=== PATIENT | female | born 1935 | race Caucasian/White ===

== ENCOUNTER 2016-11-02 15:23 | Inpatient (IN) ==
[2016-11-02] MEDS ORDERED: KETOROLAC 30 MG/1 ML VIAL IV STA (16:15)
[2016-11-02] MEDS ORDERED: SODIUM CHLORIDE 0.9% 500 ML IV STA (16:15)
--- NOTE | 2016-11-02 16:17 | Emergency Department Note ---
Silvano Borden Manpreet, am scribing for, and in the presence of, Tabby Herbert DO 16: 13. IKeon Debra, DO, personally performed the services described in this documentation, ascribed by Prieto Schaefer in my presence, and it is both accurate and complete 617 . Arrival - Arrival Chief Complaint: Non-Specific Stated Complaint: ?Hypotension from [facility] ED Nursing Triage Note: Pt sent from [facility] for low blood pressure since this am (systolic pressure 60-80's). Upon EMS arrival BP systolic of 115. Pt c/o left leg pain and had a Left Hip FX repair on 10-26. Mode of Arrival: Stretcher Limitations: No Limitations Source: Patient, Family (Son) - History of Present Illness HPI Narrative: Pt is a 81 y/o male who is transferred from [facility] for further evaluation of hypotention since yesterday. Pt is at [facility] for rehab which she started 10/29/16 S/P fracturing hip on 10/25/16 and having surgery on . Pt is accompanied by her son who states the pt did not eat food yesterday but at some today. Pt c/o a FLORES that is a new onset while being in the room. Pt' s BP was 118/47 during triage. No other pains/complaints reported to the ED. Onset (ago): day(s) (Yesterday) Consistency: constant Severity: moderate Allergies/Adverse Reactions: Allergies Allergy/AdvReac Type Severity Reaction Status Date / Time No Known Allergies Allergy Verified 10/29/16 15:31 Home Medications: Home Medications Medication Instructions Recorded Confirmed Type Atorvastatin [Lipitor] 40 mg PO DAILY #30 tablet 01/29/16 10/29/16 Rx Carvedilol [Coreg] 3.125 mg PO BID #60 tablet 01/29/16 10/29/16 Rx Isosorbide Mononitrate [Imdur] 30 mg PO DAILY #30 tablet 01/29/16 10/29/16 Rx Ticagrelor [Brilinta] 90 mg PO BID #60 tablet 01/29/16 10/29/16 Rx hydrALAZINE TAB [Apresoline Tab] 25 mg PO BID #60 tablet 01/29/16 10/29/16 Rx Insulin NPH [HumuLIN N] 10 unit SUBCUT BEDTIME 10/25/16 10/29/16 History Insulin Regular [HumuLIN R] 5 unit SUBCUT AC 10/25/16 10/29/16 History Review of System - Review of System 12 point system: reviewed and no additional remarkable complaints except as stated - Review of System Constitutional: Present: other (Hypotention). Absent: chills, diaphoresis, fever Respiratory: Absent: cough, respiratory distress, wheezing Cardiovascular: Absent: chest pain Gastrointestinal: Absent: abdominal pain, nausea, vomiting Neurological: Present: headache. Absent: weakness, numbness, paresthesias Medical,Surgical,& Family Hx - Medical History Cardio: History of: CHF (Jan 2016), CAD (Cardiac stents placed in January, ) Neurology: History of: Vertigo HEENT: History of: Eye Problem (macular degeneration) Endocrine: History of: Diabetes Mellitus (IDDM), Dyslipidemia Rheumatology: History of;: Rheumatoid Arthritis Respiratory: History of: Bronchitis Renal: History of: Renal Problems Genitourinary: History of: Recurring Urinary Tract Infections Musculoskeletal: History of: Back/Neck Problems (back surgery), Musculoskeletal Problems Other: History of: Miscellaneous Medical Problems (staph infection origin and date unknown) - Surgical History Cardiac Surgeries: Sugical HX of: Cardiac Catheterization (January 2016-Dr. Valentine) Neurologic Surgeries: Patient denies: Neurologic Surgery HEENT Surgeries: Surgical HX of: Eye Surgery (cataract left and right) Abdominal Surgeries: Surgical HX of: Appendectomy Reproductive Surgeries: Surgical HX of;: Section, Hysterectomy Orthopedic Surgeries: Surgical HX of;: Orthopedic Surgery (left femur fx ORIF ( current diag 10/2016)), Spinal Surgery - Family History Family History: Reports;: Family Cancer (Mothers sister), Family Diabetes ( Oldest daughter, Patients mother and father), Family Heart Disease (mother) Denies;: Family Anesthesia Reaction - Social History Smoking Status: Never smoker Exam Vital Signs: Vital Signs Temperature 97.9 F 11/02/16 15:42 Pulse Rate 69 11/02/16 17:07 Respiratory Rate 23 11/02/16 17:07 Blood Pressure 127/59 11/02/16 17:07 O2 Sat by Pulse Oximetry 99 11/02/16 17:07 - General General appearance: alert, in no apparent distress, other (Pale appearence) - Head Head exam: Present: atraumatic, normocephalic, normal inspection - Eye Eye exam: Present: normal appearance, PERRL, EOMI - ENT ENT exam: Present: normal exam, normal oropharynx, mucous membranes dry, TM's normal bilaterally - Neck Neck exam: Present: normal inspection, full ROM, trachea midline. Absent: tenderness - Chest Chest inspection: Present: normal inspection, symmetric chest wall rise. Absent : tenderness - Respiratory Respiratory exam: Present: normal lung sounds bilaterally. Absent: accessory muscle use, respiratory distress - Cardiovascular Cardiovascular exam: Present: regular rate, normal rhythm, normal heart sounds. Absent: murmur, rubs, gallop - Abdominal Exam Abdominal exam: Present: soft, normal bowel sounds. Absent: distention, tenderness, guarding - Extremities Exam Extremities exam: Present: normal inspection (Bandage notes on left hip), full ROM. Absent: tenderness - Back Exam Back exam: Present: normal inspection, full ROM. Absent: tenderness - Neurological Exam Neurological exam: Present: alert, oriented X3, CN II-XII intact, reflexes normal - Psychiatric Psychiatric exam: Present: normal affect, normal mood - Skin Skin exam: Present: warm, dry, intact, normal color. Absent: pallor Course Course Narrative: Spoke with hospitalist service patient will be admitted to the hospital with a urinary tract infection blood pressure remained stable throughout visit. Rocephin was started. Cultures have been done Results - Labs CBC & BMP: 11/02/16 16:29 11/02/16 16:29 Lab Results: I have reviewed the patients labs Labs: Laboratory Tests 11/02/16 16:29 WBC 19.6 H RBC 2.76 L Hgb 8.3 L Hct 25.0 L MCV 90.6 MCH 30 MCHC 33.2 RDW 14.3 Plt Count 229 MPV 11.3 Neut % (Auto) 85.2 H Lymph % (Auto) 6.9 L Brooks % (Auto) 6.0 Eos % (Auto) 1.0 Baso % (Auto) 0.2 Neut # (Auto) 16.7 H Lymph # (Auto) 1.4 Brooks # (Auto) 1.2 H Eos # (Auto) 0.2 Baso # (Auto) 0.0 Immature Gran % 0.7 Nucleated RBC % 0.0 Immature Gran # 0.14 Nucleated RBCs # 0.00 Immature Plt Fraction 0.0 Laboratory Tests 11/02/16 16:29 Urine Color Yellow Urine Appearance Cloudy Urine pH 5.0 Ur Specific [place] 1.009 Urine Protein 100 Urine Glucose (UA) 50 Urine Ketones Negative Urine Blood Moderate Urine Nitrate Negative Urine Bilirubin Negative Urine Urobilinogen < 2.0 H Urine Leukocytes Large H Urine RBC 22 Urine WBC 1747 Urine WBC Clumps Many Ur Culture Indicated? Results to follow Laboratory Tests 11/02/16 11/02/16 11/02/16 16:29 16:29 16:29 Total Counted 100 Segmented Neutrophils 83 Band Neutrophils 9 Lymphocytes 3 L Monocytes 5 Platelet Estimate Normal Hypochromasia Slight Sodium 131 L Potassium 5.5 H Chloride 98 Carbon Dioxide 24 Anion Gap 14.5 BUN 66 H Creatinine 4.00 H GFR Calculation 9 BUN/Creatinine Ratio 16.00 Glucose 220 H Calculated Osmolality 287.7 Calcium 8.0 L Total Bilirubin 1.00 AST 22 ALT < 6 L Alkaline Phosphatase 172 H Total Protein 6.1 L Albumin 2.5 L Globulin 3.6 H Albumin/Globulin Ratio 0.6 L Urine Color Yellow Urine Appearance Cloudy Urine pH 5.0 Ur Specific [place] 1.009 Urine Protein 100 Urine Glucose (UA) 50 Urine Ketones Negative Urine Blood Moderate Urine Nitrate Negative Urine Bilirubin Negative Urine Urobilinogen < 2.0 H Urine Leukocytes Large H Urine RBC 22 Urine WBC 1747 Urine WBC Clumps Many Ur Culture Indicated? Results to follow Laboratory Tests 11/02/16 11/02/16 16:29 16:29 Sodium 131 L Potassium 5.5 H Chloride 98 Carbon Dioxide 24 Anion Gap 14.5 BUN 66 H Creatinine 4.00 H GFR Calculation 9 BUN/Creatinine Ratio 16.00 Glucose 220 H Calculated Osmolality 287.7 Lactic Acid 3.3 H Calcium 8.0 L Total Bilirubin 1.00 AST 22 ALT < 6 L Alkaline Phosphatase 172 H Total Protein 6.1 L Albumin 2.5 L Globulin 3.6 H Albumin/Globulin Ratio 0.6 L - Diagnostic Findings Procedure: CT: report reviewed by me ("Head CT w/o Con: 1. Diffuse small vessel ischemic change. 2. Mild atrophy. 3. No acute hemorrhage infarction or mass effect.") Disposition Clinical Impression: UTI (urinary tract infection), Sepsis, Renal failure Case discussed with: patient, patient's family Disposition: Still a Patient Condition: Stable Time of Disposition: 17:36
--- NOTE | 2016-11-02 16:35 | CT Report ---
Exam: CT scan of brain without contrast Date: 11/02/2016 Indication: Headache hypertension Comparison: 08/18/2012 Patient's classification: Emergency department Technical: Images were obtained from the skull base to the vertex without the use of intravenous contrast. Dose reduction was performed with decreasing kv and mA and automated exposure Total DLP: 997.9 mGy*cm Findings: Brainstem and cerebellum are intact. Small vessel changes are present in the periventricular subcortical white matter regions with mild enlargement of ventricles and component of generalized atrophy. Paranasal sinuses globes and sella are intact. The mastoids are unremarkable. The calvarium is unremarkable. There is calcification in the falx cerebri present. Impression: 1. Diffuse small vessel ischemic change 2. Mild atrophy 3. No acute hemorrhage infarction or mass effect. PROCEDURE INTERPRETED AT [facility] [place] DEPARTMENT OF RADIOLOGY Final Report Signed by: Dr. Filiberto Canseco
[2016-11-02 16:45] LABS: Basophils % 0.2 % (0.0-0.8); Eosinophils # 0.2 10*3/uL (0.0-0.87); Hemoglobin 8.3 GM/DL (12.0-16.0); Immature Granulocytes % 0.7 %; Immature Granulocytes Absolute 0.14 #; Lymphocytes # 1.4 10*3/uL (1.4-4.0); Lymphocytes % 6.9 % (21.3-54.2); Mean Corpuscular HGB Conc 33.2 GM/DL (32-36); Mean Corpuscular Hemoglobin 30 PG (27-34); Mean Corpuscular Volume 90.6 FL (87-102); Mean Platelet Volume 11.3 FL (9.6-12.0); Monocytes # 1.2 10*3/uL (0.11-0.8); Neutrophils # 16.7 10*3/uL (1.4-7.4); Neutrophils % 85.2 % (38.7-73.9); Platelet Count 229 T/CUMM (130-400); Red Blood Count 2.76 MC/CUMM (3.8-5.5); Red Cell Distribution Width 14.3 % (9.3-17.3); White Blood Count 19.6 T/CUMM (4-12)
[2016-11-02] MEDS ORDERED: KETOROLAC 30 MG/1 ML VIAL ONE (16:46)
[2016-11-02] MEDS ORDERED: cefTRIAXone 1,000 MG in SODIUM CHLORIDE 0.9% 100 ML IV STA (16:54)
[2016-11-02 16:58] LABS: Apearance,Urine CLOUDY (Clear); Bilirubin,Urine Negative (Negative); Blood, Urine Moderate mg/dL (Negative); Glucose,Urine (UA) 50 mg/dL (Negative); Ketones,Urine Negative (Negative); Nitrite,Urine Negative (Negative); Protein,Urine 100 MG/DL; RBC,Urine 22 /HPF (0-4); Urine Color Yellow (Yellow); Urine Specific Gravity 1.009 (1.001-1.035); Urine Urobilinogen < 2.0 EU/DL (0.2-1.0); WBC,Urine 1747 /HPF (0-6)
[2016-11-02] MEDS ORDERED: SODIUM CHLORIDE 0.9% 100 ML IV ONE (17:02)
[2016-11-02] MEDS ORDERED: cefTRIAXone 1,000 MG VIAL ONE (17:02)
[2016-11-02 17:04] LABS: Band Neutrophils 9 % (0-10); Lymphocytes 3 % (20-55); Segmented Neutrophils 83 % (50-85); Total Cells Counted 100
[2016-11-02 17:05] LABS: Hypochromasia Slight; Platelet Estimate Normal
[2016-11-02 17:13] LABS: Alanine Aminotransferase < 6 U/L (13-56); Albumin 2.5 G/DL (3.4-5.0); Alkaline Phosphatase 172 U/L (45-117); Aspartate Amino Transferase 22 U/L (0-37); Blood Urea Nitrogen 66 MG/DL (7-18); Glucose 220 MG/DL (74-106); Osmolality,Calculated 287.7 MOS/KG (273-304); Potassium 5.5 MMOL/L (3.5-5.1); Sodium 131 MMOL/L (136-145); Total Protein 6.1 G/DL (6.4-8.3)
[2016-11-02] MEDS ORDERED: SODIUM CHLORIDE 0.9% 1,600 ML IV ONE (17:41)
[2016-11-02] MEDS ORDERED: SODIUM CHLORIDE 0.9% 1,200 ML IV ONE (17:58)
--- NOTE | 2016-11-02 17:59 | Hospitalist History & Physical ---
Assessment and Plan (1) UTI (urinary tract infection) Status: Acute Assessment and plan: Pt. is uroseptic. UA reveals UTI. WBC is 19.6. Lactic acid is 3.3 Pt. will be placed on monitored bed. Treatment of IVF and IV antibiotics (Zoysn). Conservative treatment with IVF due to hxof CHF. BMP/CBC in am. Repeat lactic acid. Current Visit: No (2) Chronic kidney disease, stage III (moderate) Problem details: stable. No indication for renal replacement therapy at this time. Status: Chronic Assessment and plan: Monitor BMPs. Gentle hydration. Current Visit: No (3) Diabetes Status: Chronic Assessment and plan: Accuchecks achs. SSI. Diabetic diet. Current Visit: No Qualifiers: Diabetes mellitus type: type 2 (4) Hip fracture, left Status: Chronic Assessment and plan: Pt is s/p left hip fracture and repair. Current Visit: No (5) Coronary artery disease Status: Chronic Assessment and plan: Heart cath in 2015. EF of 30% Pt. currently on Brilinta. We will resume this. Current Visit: No Qualifiers: Coronary Disease-Associated Artery/Lesion type: [place] artery [place] vs. transplanted heart: [place] heart History of Present Illness Chief complaint: hypotension/urosepsis History of present illness: Ms. Walsh is a 81 year old white female with a history of CAD, diabetes, dyslipidemia, chronic renal disease, and a recent left hip fracture that presented to the ED from the [facility] for further evaluation of hypotension. Pt.'s family is present at the bedside. Pt. was discharged from [place] on 10/29 after a repair to a left hip fracture. She was transferred to [facility] for rehab. Pt. was noted to have a low blood pressure this morning and was transferred back to the main facility for eval. On arrival to our ED, bp was stable but patient was noted to have a UTI with an elevated WBC of 19.6. Pt. also noted to have Na of 131, K of 5.5, bun 66, creatinine of 4 and lactic acid of 3.3. Pt. reports feeling "ill" but is unable to describe her symptoms any further. She denies chest pain, chills, shortness of breath, n/v/d, or any other complaints at this time. Pt. will be admitted to the hospitalist service for further eval and treatment of urosepsis, acute on chronic renal failure, and hyperkalemia. Home Medications Medication Instructions Recorded Confirmed Type Atorvastatin [Lipitor] 40 mg PO DAILY #30 tablet 01/29/16 10/29/16 Rx Carvedilol [Coreg] 3.125 mg PO BID #60 tablet 01/29/16 10/29/16 Rx Isosorbide Mononitrate [Imdur] 30 mg PO DAILY #30 tablet 01/29/16 10/29/16 Rx Ticagrelor [Brilinta] 90 mg PO BID #60 tablet 01/29/16 10/29/16 Rx hydrALAZINE TAB [Apresoline Tab] 25 mg PO BID #60 tablet 01/29/16 10/29/16 Rx Insulin NPH [HumuLIN N] 10 unit SUBCUT BEDTIME 10/25/16 10/29/16 History Insulin Regular [HumuLIN R] 5 unit SUBCUT AC 10/25/16 10/29/16 History Allergies Allergy/AdvReac Type Severity Reaction Status Date / Time No Known Allergies Allergy Verified 10/29/16 15:31 Medical,Surgical,& Family Hx - Medical History Cardio: History of: CHF (Jan 2016), CAD (Cardiac stents placed in January, ) Neurology: History of: Vertigo HEENT: History of: Eye Problem (macular degeneration) Endocrine: History of: Diabetes Mellitus (IDDM), Dyslipidemia Rheumatology: History of;: Rheumatoid Arthritis Respiratory: History of: Bronchitis Renal: History of: Renal Problems Genitourinary: History of: Recurring Urinary Tract Infections Musculoskeletal: History of: Back/Neck Problems (back surgery), Musculoskeletal Problems Other: History of: Miscellaneous Medical Problems (staph infection origin and date unknown) - Surgical History Cardiac Surgeries: Sugical HX of: Cardiac Catheterization (January 2016-Dr. Valentine) Neurologic Surgeries: Patient denies: Neurologic Surgery HEENT Surgeries: Surgical HX of: Eye Surgery (cataract left and right) Abdominal Surgeries: Surgical HX of: Appendectomy Reproductive Surgeries: Surgical HX of;: Section, Hysterectomy Orthopedic Surgeries: Surgical HX of;: Orthopedic Surgery (left femur fx ORIF ( current diag 10/2016)), Spinal Surgery - Family History Family History: Reports;: Family Cancer (Mothers sister), Family Diabetes ( Oldest daughter, Patients mother and father), Family Heart Disease (mother) Denies;: Family Anesthesia Reaction - Social History Smoking Status: Never smoker Marital Status: Lives With:: Spouse Functional capacity: uses cane/walker (pt. was independent before fracture) - Constitutional Constitutional: Present: weakness. Absent: chills, fever(s) - EENT Eyes: Present: loss of vision Ears: Present: decreased hearing Nose, mouth and throat: Absent: headache(s) - Cardiovascular Cardiovascular: Absent: chest pain at rest, dyspnea, dyspnea on exertion, edema - Respiratory Respiratory: Absent: dyspnea - Gastrointestinal Gastrointestinal: Absent: abdominal pain, nausea, vomiting - Genitourinary Genitourinary: Present: urinary incontinence, other (frequent UTIs) - Neurological Neurological: Present: confusion. Absent: dizziness - Psychiatric Psychiatric: Present: memory loss - Hematologic/Lymphatic Hematologic/Lymphatic: Present: easy bruising Exam - Constitutional Vitals: Period Temp Pulse Resp BP Sys/Alvarez Pulse Ox Last 24 Hr 97.9 F-97.9 F 69-72 15-23 112-129/47-59 96-100 General appearance: no acute distress, under weight - Head Head exam: Present: normal inspection, normocephalic - Eye Eye exam: Present: EOMI Pupils: Present: ALLIE - Respiratory Respiratory exam: Present: clear to auscultation bilaterally. Absent: wheezes - Cardiovascular Cardiovascular exam: Present: regular rate and rhythm. Absent: tachycardia - GI/Abdominal GI/Abdominal exam: Present: normal bowel sounds, soft. Absent: tenderness - Extremities Exam Extremities exam: Present: other (s/p left hip fracture). Absent: edema - Neurological Exam Neurological exam: Present: alert, oriented X3 - Psychiatric Psychiatric exam: Present: normal affect, normal mood - Skin Skin exam: Present: normal color, warm, dry Results - Labs CBC & BMP: 11/02/16 16:29 11/02/16 16:29 Lab Results: I have reviewed the past 24 hour labs
--- NOTE | 2016-11-02 18:06 | XRay Report ---
Exam: XR chest 1V portable Date: 11/02/2016 5:15 PM Indication: Hypotension elevated white blood cell count Comparison: 10/25/2016 Technical: AP Findings: Mild cardiac enlargement is present. ASVD is present. Mild interstitial thickening in the perihilar regions with some calcification tracheobronchial tree. No obvious effusions or consolidations. Mediastinum reveals a few small tiny nodes. Bony structures are intact. A few reticular nodular densities are present. Impression: 1. Mild scarring in the perihilar regions without acute cardiopulmonary pathology PROCEDURE INTERPRETED AT [facility] DEPARTMENT OF RADIOLOGY Final Report Signed by: Dr. Filiberto Canseco
--- NOTE | 2016-11-02 18:45 | Event Note ---
Went back to reexamine the patient. I have reviewed her records. Discussed with family members at the bedside that her initial urinary tract infection was adequately treated and follow-up cultures revealed only yeast which is been treated with Diflucan at rehab. We have recultured and initiated further antibiotic therapy at this time. Sepsis - Sepsis Classification of Sepsis: Severe Sepsis - Physical Exam Respiratory exam: clear to auscultation bilaterally Capillary Refill: Less Than 3 Seconds Peripheral pulses: Radial (L): 5+, Radial (R): 5+ Cardiovascular exam: regular rate and rhythm Skin exam: normal color
[2016-11-02] MEDS ORDERED: PIPERACILLIN/TAZOBACTAM 3,375 MG in SODIUM CHLORIDE 0.9% 100 ML IV SCH (20:00)
[2016-11-02] MEDS ORDERED: GLUCAGON 1 MG VIAL IM PRN (20:39)
[2016-11-02] MEDS ORDERED: DEXTROSE 50% 25 GM/50 ML SYRINGE IV PRN (20:39)
[2016-11-02] MEDS: SODIUM CHLORIDE 0.9% 1,000 ML IV SCH (20:59)
[2016-11-02] MEDS ORDERED: ENOXAPARIN 30 MG/0.3 ML SYRINGE SUBCUT SCH (21:00)
[2016-11-02] MEDS: TICAGRELOR 90 MG TABLET PO SCH (21:18)
[2016-11-02] MEDS: CARVEDILOL 3.125 MG TABLET PO SCH (21:18)
[2016-11-02] MEDS: ACETAMINOPHEN 325 MG TABLET PO PRN (21:18)
[2016-11-02] MEDS: INSULIN NPH 100 UNIT/ML SUBCUT SCH (21:29)
[2016-11-02] MEDS: INSULIN LISPRO 100 UNIT/ML SUBCUT SCH (21:29)
[2016-11-02] MEDS: PIPERACILLIN/TAZOBACTAM 3,375 MG in SODIUM CHLORIDE 0.9% 100 ML IV SCH (21:30)
[2016-11-03 05:58] LABS: Basophils % 0.2 % (0.0-0.8); Eosinophils # 0.4 10*3/uL (0.0-0.87); Eosinophils % 3.2 % (0.00-10.9); Hematocrit 20.8 VOL% (35.7-47.0); Immature Granulocytes % 0.8 %; Immature Granulocytes Absolute 0.11 #; Lymphocytes # 1.8 10*3/uL (1.4-4.0); Lymphocytes % 13.6 % (21.3-54.2); Mean Corpuscular HGB Conc 33.7 GM/DL (32-36); Mean Corpuscular Hemoglobin 30 PG (27-34); Mean Corpuscular Volume 89.7 FL (87-102); Mean Platelet Volume 11.5 FL (9.6-12.0); Monocytes # 1.1 10*3/uL (0.11-0.8); Monocytes % 8.5 % (1.7-12.7); Neutrophils # 9.6 10*3/uL (1.4-7.4); Neutrophils % 73.7 % (38.7-73.9); Platelet Count 190 T/CUMM (130-400); Red Blood Count 2.32 MC/CUMM (3.8-5.5); Red Cell Distribution Width 14.1 % (9.3-17.3)
[2016-11-03 06:10] LABS: White Blood Count 13.1 T/CUMM (4-12)
[2016-11-03] MEDS: ACETAMINOPHEN 325 MG TABLET PO PRN (06:26)
[2016-11-03 06:30] LABS: Calcium 7.3 MG/DL (8.5-10.1); Osmolality,Calculated 289.1 MOS/KG (273-304); Potassium 4.2 MMOL/L (3.5-5.1)
[2016-11-03 07:09] LABS: Hematocrit 21.6 VOL% (35.7-47.0); Hemoglobin 7.2 GM/DL (12.0-16.0)
[2016-11-03] MEDS: INSULIN LISPRO 100 UNIT/ML SUBCUT SCH ×4 (08:31→21:39)
[2016-11-03] MEDS ORDERED: ISOSORBIDE MONONITRATE 30 MG TABLET PO SCH (09:00)
[2016-11-03] MEDS ORDERED: SODIUM CHLORIDE 0.9% 250 ML IV PRN (09:05)
[2016-11-03] MEDS: INSULIN REGULAR 100 UNIT/ML SUBCUT SCH ×3 (09:23→18:00)
[2016-11-03] MEDS: ATORVASTATIN 40 MG TABLET PO SCH (09:24)
[2016-11-03] MEDS: TICAGRELOR 90 MG TABLET PO SCH ×2 (09:24→21:37)
[2016-11-03] MEDS: FLUCONAZOLE 100 MG TABLET PO SCH (09:25)
[2016-11-03] MEDS: CARVEDILOL 3.125 MG TABLET PO SCH (09:25)
[2016-11-03] MEDS: PIPERACILLIN/TAZOBACTAM 3,375 MG in SODIUM CHLORIDE 0.9% 100 ML IV SCH ×2 (09:31→21:37)
--- NOTE | 2016-11-03 11:46 | Hospitalist Progress Note ---
Assessment and Plan (1) Sepsis Status: Acute Assessment and plan: most likely from UTI. UC-negative so far Plan continue with IV antibiotics, follow BC Current Visit: Yes (2) UTI (urinary tract infection) Status: Acute Assessment and plan: Her initial urinary tract infection was adequately treated and follow-up cultures revealed only yeast which is been treated with Diflucan at rehab. We have recultured and initiated further antibiotic therapy at this time. Recent UC-negative Current Visit: Yes (3) Chronic kidney disease, stage III (moderate) Problem details: stable. No indication for renal replacement therapy at this time. Status: Chronic Assessment and plan: stable, avoid nephrotoxics Current Visit: No (4) Diabetes Status: Chronic Assessment and plan: stable, will get HbA1c level. Current Visit: No (5) Hip fracture, left Status: Chronic Assessment and plan: s/p repair-recently Current Visit: No (6) Coronary artery disease Status: Chronic Assessment and plan: Heart cath in 2015. EF of 30% Pt. currently on Brilinta Current Visit: No Qualifiers: Coronary Disease-Associated Artery/Lesion type: [place] artery [place] vs. transplanted heart: [place] heart Hospitalist: Subjective Interval history: She complains of pain all over. Her H/H dropped to 7.2/21.6. She has no clinical evidence of active bleeding. Exam - Constitutional Vitals: Period Temp Pulse Resp BP Sys/Alvarez Pulse Ox Last 24 Hr 96.9 F-98.2 F 68-78 15-23 108-129/47-67 92-100 General appearance: no acute distress - Head Head exam: Present: normal inspection - Respiratory Respiratory exam: Present: clear to auscultation bilaterally - Cardiovascular Cardiovascular exam: Present: regular rate and rhythm - GI/Abdominal GI/Abdominal exam: Present: normal bowel sounds - Extremities Exam Extremities exam: Present: other (s/p left hip repair) - Neurological Exam Neurological exam: Present: alert, oriented X3 Results - Labs CBC & BMP: 11/03/16 06:56 11/03/16 05:25 Lab Results: I have reviewed the past 24 hour labs Quality Measures - Stroke Symptom Onset Unknown: No
[2016-11-03 16:51] LABS: Troponin I Only 0.026 NG/ML (0.00-0.045)
--- NOTE | 2016-11-03 18:16 | Orthopedic Consult Note ---
History of Present Illness Chief complaint: Recent left hip fracture History of present illness: Ms. Walsh is a 81 year old female known to me from last week she underwent a compression hip screw fixation of an intertrochanteric fracture essentially nondisplaced by Dr. Stringer about a week ago she went to rehab on Thursday subsequently this past weekend was having difficulty with hypotension and had a hard time getting about her therapy she is known to have a urinary tract infection upon the readmission Dc's was also noted to be anemic. She has received 2 units of PRBCs today for hematocrit which was 21. She is also in the ICU for her hypotension which for which is markedly improved since receiving the blood. Examination confirms well-developed nourished female she is awake alert response to questions appropriately her left thigh reveals no significant swelling or pain in her thighs soft nonswollen her wound is clean and dry there is no bleeding on the dressing her wound looks good no erythema. No pain or swelling distally X-rays left hip pending Impression: Postop left hip fracture status post compression hip screw with anemia Recent UTI Plan: I discussed with her case with her family I do not think there is any bleeding in the thigh at this point now we will cancel the CT scan of her hip and thigh she will have a small hematoma as result of her surgery but again her thighs soft nonswollen and I do not believe that is going to yield any significant results. Will check a plain x-ray to confirm that her hip still looks good and she can progress with her PT and weightbearing. I believe her anemia is not unexpected postoperatively and should be markedly improved will defer to medical service for other causes of her anemia> Home Medications Medication Instructions Recorded Confirmed Type Atorvastatin [Lipitor] 40 mg PO DAILY #30 tablet 01/29/16 11/03/16 Rx Carvedilol [Coreg] 3.125 mg PO BID #60 tablet 01/29/16 11/03/16 Rx Isosorbide Mononitrate [Imdur] 30 mg PO DAILY #30 tablet 01/29/16 11/03/16 Rx Ticagrelor [Brilinta] 90 mg PO BID #60 tablet 01/29/16 11/03/16 Rx hydrALAZINE TAB [Apresoline Tab] 25 mg PO BID #60 tablet 01/29/16 10/29/16 Rx Insulin NPH [HumuLIN N] 10 unit SUBCUT BEDTIME 10/25/16 11/03/16 History Insulin Regular [HumuLIN R] 5 unit SUBCUT AC 10/25/16 11/03/16 History Allergies Allergy/AdvReac Type Severity Reaction Status Date / Time No Known Allergies Allergy Verified 10/29/16 15:31 Medical,Surgical,& Family Hx - Medical History Cardio: History of: CHF (Jan 2016), CAD (Cardiac stents placed in January, ), Hypertension Neurology: History of: Vertigo HEENT: History of: Eye Problem (macular degeneration) Endocrine: History of: Diabetes Mellitus (IDDM), Dyslipidemia Rheumatology: History of;: Rheumatoid Arthritis Respiratory: History of: Bronchitis Renal: History of: Renal Problems Genitourinary: History of: Recurring Urinary Tract Infections Musculoskeletal: History of: Back/Neck Problems (back surgery), Musculoskeletal Problems Other: History of: Miscellaneous Medical Problems (staph infection origin and date unknown) - Surgical History Cardiac Surgeries: Sugical HX of: Cardiac Catheterization (January 2016-Dr. Valentine) Neurologic Surgeries: Patient denies: Neurologic Surgery HEENT Surgeries: Surgical HX of: Eye Surgery (cataract left and right) Abdominal Surgeries: Surgical HX of: Appendectomy Reproductive Surgeries: Surgical HX of;: Section, Hysterectomy Orthopedic Surgeries: Surgical HX of;: Orthopedic Surgery (left femur fx ORIF ( current diag 10/2016)), Spinal Surgery - Family History Family History: Reports;: Family Cancer (Mothers sister), Family Diabetes ( Oldest daughter, Patients mother and father), Family Heart Disease (mother) Denies;: Family Anesthesia Reaction - Social History Smoking Status: Never smoker Frequency of Alcohol Use: None Type of Drug Use: None Exam - Constitutional Vitals: Period Temp Pulse Resp BP Sys/Alvarez Pulse Ox Last 24 Hr 96.9 F-98.2 F 67-86 13-20 105-136/46-67 92-99 Results - Labs CBC & BMP: 11/03/16 06:56 11/03/16 05:25
[2016-11-03 19:34] LABS: Hemoglobin 9.6 GM/DL (12.0-16.0)
--- NOTE | 2016-11-03 20:00 | XRay Report ---
XR hip 1V LT Indication: Postop Comparison: Left hip x-ray 10/26/2016. Technique: AP and lateral images of the left hip were submitted. Findings: Little change in bony structure of the left hip is demonstrated. Surgical clips overlying the lateral aspect. Diffuse basilar calcifications are noted throughout the femoral arteries. Impression: 1. Little interval change in appearance the left hip. 11/03/2016 7:57 PM PROCEDURE INTERPRETED AT [facility] [place] DEPARTMENT OF RADIOLOGY Final Report Signed by: Dr. Romeo Viera
[2016-11-03] MEDS: INSULIN NPH 100 UNIT/ML SUBCUT SCH (21:39)
[2016-11-04 05:01] LABS: Basophils % 0.3 % (0.0-0.8); Eosinophils # 0.4 10*3/uL (0.0-0.87); Eosinophils % 3.2 % (0.00-10.9); Hematocrit 27.5 VOL% (35.7-47.0); Hemoglobin 9.5 GM/DL (12.0-16.0); Immature Granulocytes % 1.2 %; Immature Granulocytes Absolute 0.14 #; Lymphocytes # 1.7 10*3/uL (1.4-4.0); Lymphocytes % 14.7 % (21.3-54.2); Mean Corpuscular HGB Conc 34.5 GM/DL (32-36); Mean Corpuscular Hemoglobin 30 PG (27-34); Mean Platelet Volume 11.5 FL (9.6-12.0); Monocytes # 1.2 10*3/uL (0.11-0.8); Monocytes % 10.5 % (1.7-12.7); Neutrophils # 8.2 10*3/uL (1.4-7.4); Neutrophils % 70.1 % (38.7-73.9); Platelet Count 198 T/CUMM (130-400); Red Blood Count 3.16 MC/CUMM (3.8-5.5); Red Cell Distribution Width 14.6 % (9.3-17.3); White Blood Count 11.7 T/CUMM (4-12)
[2016-11-04 05:46] LABS: Calcium 7.6 MG/DL (8.5-10.1); Osmolality,Calculated 289.7 MOS/KG (273-304); Potassium 4.6 MMOL/L (3.5-5.1)
[2016-11-04] MEDS: SODIUM CHLORIDE 0.9% 1,000 ML IV SCH (06:10)
[2016-11-04] MEDS: INSULIN LISPRO 100 UNIT/ML SUBCUT SCH ×4 (08:23→21:06)
--- NOTE | 2016-11-04 08:51 | Orthopedic Progress Note ---
Orthopedics - Subjective Interval history: Hemoglobin 9.5 comfortable again leg is soft nontender no swelling wound is dry. Most likely the floor today we will restart PT she is going to continue advancing with her weightbearing x-ray satisfactory. Exam - Constitutional Vitals: Period Temp Pulse Resp BP Sys/Alvarez Pulse Ox Last 24 Hr 97.2 F-98.2 F 67-88 10-19 105-168/46-89 92-99 Results - Labs CBC & BMP: 11/04/16 03:39 11/04/16 03:39 Quality Measures - Stroke Symptom Onset Unknown: No
[2016-11-04] MEDS ORDERED: cefTRIAXone 1,000 MG in SODIUM CHLORIDE 0.9% 100 ML IV SCH (09:00)
[2016-11-04] MEDS: ATORVASTATIN 40 MG TABLET PO SCH (09:04)
[2016-11-04] MEDS: TICAGRELOR 90 MG TABLET PO SCH ×2 (09:04→21:09)
[2016-11-04] MEDS: FLUCONAZOLE 100 MG TABLET PO SCH (09:04)
[2016-11-04] MEDS: CARVEDILOL 3.125 MG TABLET PO SCH ×2 (09:04→21:09)
[2016-11-04] MEDS: INSULIN REGULAR 100 UNIT/ML SUBCUT SCH ×3 (09:05→16:57)
--- NOTE | 2016-11-04 10:15 | Physician Query Form ---
CLICK EDIT DOCUMENT TO SELECT QUERY ANSWER --> OK --> SIGN Katie Bautista RN Clinical Revenue Cycle Consultant W) [phone] (f) [phone] [email or web address] PROVIDERS: Make your selection(s) from the choices in EACH section by typing an "x" and enter comments in the comment section. Please use your independent medical judgment in providing your response. This request does not imply that any particular answer is desired or expected. CLINICAL INDICATORS: (Providers should not edit this section) Based on documentation of "Patient's blood pressure started dropping in the 80s/ 50s despite on blood transfusion" "In ICU for her hypotension" Transfused 2 units PRBC and multiple NS boluses. Please clarify which, if any, of the following is the etiology of the above symptoms and treatment rendered: ( ) Hypovolemic shock ( ) Septic shock ( ) Cardiogenic shock ( x) Hemorrhagic shock ( ) Traumatic shock ( ) Shock due to, please specify etiology: ( ) Shock, unknown etiology ( ) Drug induced, please specify substance: ( ) Iatrogenic Hypotension ( ) Orthostatic Hypotension ( ) Hypotension, unknown etiology ( ) Other, please specify: ( ) Clinically unable to determine COMMENTS: PLEASE ALSO DOCUMENT RESPONSE IN PROGRESS NOTES AND/OR DISCHARGE SUMMARY Use of terms such as suspected, likely, or probable (associated with a specific diagnosis that is being evaluated, monitored, or treated as if it exists) are acceptable and can be restated in the discharge summary if not ruled out. MTDD
--- NOTE | 2016-11-04 15:12 | Hospitalist Progress Note ---
Assessment and Plan (1) Acute blood loss anemia Status: Acute Assessment and plan: s/p 4 units of prbc, currently on Brilinta for stent. Current Visit: No (2) Diabetes Status: Chronic Assessment and plan: Hemoglobin A1c of 7.4, blood sugars stable, continue insulin Current Visit: No Qualifiers: Diabetes mellitus type: type 2 (3) Fracture, intertrochanteric, left femur Status: Acute Assessment and plan: s/p left hip repair on 10/29 Current Visit: No (4) Acute on chronic renal failure Status: Acute Assessment and plan: worsening renal failure due to acute blood loss anemia Current Visit: No (5) UTI (urinary tract infection) Status: Acute Assessment and plan: Growing yeast in the urine. Will DC antibiotics and give Diflucan Current Visit: Yes (6) Sepsis Status: Acute Assessment and plan: resolved, HL IVF Current Visit: Yes (7) Hypertension Status: Acute Assessment and plan: started coreg 3.125 mg po bid Current Visit: Yes (8) CAD (coronary artery disease) Status: Acute Assessment and plan: cont brilinta for now Current Visit: Yes (9) CHF (congestive heart failure) Status: Chronic Assessment and plan: restarted coreg, echo ef 30% in 2016 Current Visit: No Qualifiers: Congestive heart failure type: combined Congestive heart failure chronicity : acute on chronic Qualified Code(s): I50.43 - Acute on chronic combined systolic (congestive) and diastolic (congestive) heart failure Hospitalist: Subjective Interval history: Patient's blood pressure and hemoglobin are stable today. I will transfer her up to third floor. We will de-escalate her antibiotics to Rocephin. I am and Hep-Lock her IV fluids. Her occult stool negative Exam - Constitutional Vitals: Period Temp Pulse Resp BP Sys/Alvarez Pulse Ox Last 24 Hr 97.4 F-98.0 F 68-88 10-20 128-168/53-89 94-99 Exam: Heart Rate-[RRR] Lungs-[CTAB] GI-[+bs soft, NT] Ext-[no edema] Neuro not tested due to pain psych [normal mood and affect] General [no acute distress] Results - Labs CBC & BMP: 11/04/16 03:39 11/04/16 03:39 Lab Results: I have reviewed the past 24 hour labs Quality Measures - Stroke Symptom Onset Unknown: No
[2016-11-04] MEDS: FLUCONAZOLE INJ 200 MG in PREMIX 1 EACH IV SCH (16:58)
[2016-11-04] MEDS: INSULIN NPH 100 UNIT/ML SUBCUT SCH (21:05)
--- NOTE | 2016-11-04 23:47 | Nephrology Consult Note ---
History of Present Illness Chief complaint: renal failure History of present illness: Ms. Walsh is a 81 year old female recently hospitalized here for hip fracture. She was treated for UTI during that hospitalization. She has chronic renal failure with baseline creatinine in the upper twos. She was transferred to [facility] for rehab. She developed hypotension and was transferred back to [facility]. She was noted to have pyuria. Hematocrit dropped significantly and she required transfusion. Blood pressure has improved after transfusion. Renal function beginning to improve. She currently denies dysuria. Home Medications Medication Instructions Recorded Confirmed Type Atorvastatin [Lipitor] 40 mg PO DAILY #30 tablet 01/29/16 11/03/16 Rx Carvedilol [Coreg] 3.125 mg PO BID #60 tablet 01/29/16 11/03/16 Rx Isosorbide Mononitrate [Imdur] 30 mg PO DAILY #30 tablet 01/29/16 11/03/16 Rx Ticagrelor [Brilinta] 90 mg PO BID #60 tablet 01/29/16 11/03/16 Rx hydrALAZINE TAB [Apresoline Tab] 25 mg PO BID #60 tablet 01/29/16 11/04/16 Rx Insulin NPH [HumuLIN N] 10 unit SUBCUT BEDTIME 10/25/16 11/03/16 History Insulin Regular [HumuLIN R] 5 unit SUBCUT AC 10/25/16 11/03/16 History Allergies Allergy/AdvReac Type Severity Reaction Status Date / Time No Known Allergies Allergy Verified 10/29/16 15:31 Medical,Surgical,& Family Hx - Medical History Cardio: History of: CHF (Jan 2016), CAD (Cardiac stents placed in January, ), Hypertension Neurology: History of: Vertigo HEENT: History of: Eye Problem (macular degeneration) Endocrine: History of: Diabetes Mellitus (IDDM), Dyslipidemia Rheumatology: History of;: Rheumatoid Arthritis Respiratory: History of: Bronchitis Renal: History of: Renal Problems Genitourinary: History of: Recurring Urinary Tract Infections Musculoskeletal: History of: Back/Neck Problems (back surgery), Musculoskeletal Problems Other: History of: Miscellaneous Medical Problems (staph infection origin and date unknown) - Surgical History Cardiac Surgeries: Sugical HX of: Cardiac Catheterization (January 2016-Dr. Valentine) Neurologic Surgeries: Patient denies: Neurologic Surgery HEENT Surgeries: Surgical HX of: Eye Surgery (cataract left and right) Abdominal Surgeries: Surgical HX of: Appendectomy Reproductive Surgeries: Surgical HX of;: Section, Hysterectomy Orthopedic Surgeries: Surgical HX of;: Orthopedic Surgery (left femur fx ORIF ( current diag 10/2016)), Spinal Surgery - Family History Family History: Reports;: Family Cancer (Mothers sister), Family Diabetes ( Oldest daughter, Patients mother and father), Family Heart Disease (mother) Denies;: Family Anesthesia Reaction - Social History Smoking Status: Never smoker Frequency of Alcohol Use: None Type of Drug Use: None Review of Systems 12 point system: reviewed and no additional remarkable complaints except as stated Exam - Vital Signs Vital signs: Period Temp Pulse Resp BP Sys/Alvarez Pulse Ox Last 24 Hr 97.4 F-98.0 F 73-88 10-20 130-167/53-89 94-100 Exam: Gen.: Alert and oriented x3. ENT: Pupils equal round reactive to light. EOMs intact. Mucous membranes moist. Neck: Supple. No JVD or bruit. Cardiovascular: Regular rate and rhythm. No murmur rub or gallop Lungs: Clear Abdomen: Soft. Nontender. Positive bowel sounds. No organomegaly Extremities: Trace edema Results - Labs CBC & BMP: 11/05/16 04:40 11/05/16 04:40 Assessment and Plan (1) Acute on chronic renal failure Status: Acute Assessment and plan: 81-year-old woman with: * CRF late stage III. Baseline creatinine upper twos * ARF. This is secondary to hypotension. Renal function beginning to improve as blood pressure has improved * Anemia. Acute blood loss. Site of loss not determined. Posttransfusion. She was on Brilinta * Hypotension secondary to blood loss. Resolved * UTI. Urine culture has grown yeast. Agree with Diflucan * CAD * Diabetes mellitus * Recent hip fracture . Current Visit: No (2) UTI (urinary tract infection) Status: Acute Current Visit: Yes (3) CAD (coronary artery disease) Status: Chronic Current Visit: Yes (4) Fracture, intertrochanteric, left femur Status: Acute Current Visit: No (5) Diabetes Status: Chronic Current Visit: No (6) Insulin dependent diabetes mellitus Status: Chronic Current Visit: No (7) Acute blood loss anemia Status: Resolved Current Visit: No
[2016-11-05 06:34] LABS: Basophils % 0.2 % (0.0-0.8); Eosinophils # 0.4 10*3/uL (0.0-0.87); Eosinophils % 3.4 % (0.00-10.9); Hemoglobin 10.2 GM/DL (12.0-16.0); Immature Granulocytes % 1.7 %; Immature Granulocytes Absolute 0.21 #; Lymphocytes % 16.4 % (21.3-54.2); Mean Corpuscular Hemoglobin 30 PG (27-34); Mean Corpuscular Volume 88.2 FL (87-102); Mean Platelet Volume 11.3 FL (9.6-12.0); Monocytes # 1.4 10*3/uL (0.11-0.8); Monocytes % 11.3 % (1.7-12.7); Neutrophils # 8.2 10*3/uL (1.4-7.4); Platelet Count 214 T/CUMM (130-400); White Blood Count 12.3 T/CUMM (4-12)
[2016-11-05 07:22] LABS: Calcium 8.1 MG/DL (8.5-10.1); Osmolality,Calculated 286.7 MOS/KG (273-304); Potassium 4.9 MMOL/L (3.5-5.1)
[2016-11-05] MEDS: INSULIN REGULAR 100 UNIT/ML SUBCUT SCH ×3 (08:01→17:14)
[2016-11-05] MEDS: INSULIN LISPRO 100 UNIT/ML SUBCUT SCH ×3 (08:01→17:13)
--- NOTE | 2016-11-05 09:16 | Case Mgmt Physician Query Form ---
TB Signs and Symptoms Screening ([place]) INSTRUCTIONS: To be completed annually on residents/staff with a significant Tuberculin Skin Test (TST) upon admission/hire or a prior significant TST. To be completed on all staff at hire. Please respond to each listed symptom with an (X) in either the "YES" or "NO" box. Do you currently have any of the following symptoms: YES NO ( ) ( x) A cough If yes, is it: ( ) Productive ( ) Non- productive ( ) ( x) Hemoptysis (spitting up blood) ( ) ( x) Chest pains ( ) ( x) Weight Loss ( ) ( x) Fever ( ) ( x) Night Sweats ( ) ( x) Weakness ( ) ( x) Loss of Appetite ( ) ( x) Difficulty Breathing If you answered YES" to any of the above questions, how long have symptoms been present? Comments: If you have any questions, please contact me. Thank you, Tana Lou RN, Office : [phone] Email : [email or web address]
[2016-11-05] MEDS ORDERED: TUBERCULIN SKIN TEST 0.1 ML SYRINGE INTRADERM ONE (09:30)
--- NOTE | 2016-11-05 09:59 | Hospitalist Progress Note ---
Assessment and Plan (1) Chronic kidney disease, stage III (moderate) Problem details: stable. No indication for renal replacement therapy at this time. Status: Chronic Assessment and plan: Improving renal function. Back to baseline creatinine 2.6 Current Visit: No (2) Ischemic cardiomyopathy Status: Chronic Assessment and plan: Followed by cardiology. Status post stent placement. On Brilinta. Current Visit: No (3) S/P drug eluting coronary stent placement Status: Acute Current Visit: No (4) Acute blood loss anemia Status: Resolved Assessment and plan: Hemoglobin stable after transfusion of 2 units of packed red blood cells. Current Visit: No (5) UTI (urinary tract infection) Status: Acute Assessment and plan: Repeat urinalysis. Culture is negative except for yeast. Current Visit: Yes (6) Hypertension Status: Chronic Current Visit: Yes Qualifiers: Hypertension type: essential hypertension Qualified Code(s): I10 - Essential (primary) hypertension (7) CAD (coronary artery disease) Status: Chronic Current Visit: Yes Hospitalist: Subjective Interval history: Patient seen and examined. No acute events overnight. Case discussed with nursing staff. Labs reviewed. at the bedside. They would prefer to go to [facility] for rehabilitation. Case discussed with case management. Renal function improving. Exam - Constitutional Vitals: Period Temp Pulse Resp BP Sys/Alvarez Pulse Ox Last 24 Hr 97.4 F-98.0 F 73-90 16-20 136-169/67-80 98-100 Exam: Constitutional System: No distress. No tremulousness. Head: Normocephalic, atraumatic. Ears, Nose and Throat System: No pain or tenderness. No epistaxis or discharge Eyes System: Pupils equal, round, and reactive. Extraocular muscles intact. Neck: Supple, without adenopathy, No jugular venous distention. No thyromegaly, neck mass, or prior surgery apparent. Respiratory System: Chest clear to auscultation. Cardiovascular System: Heart with regular rate and rhythm. No murmur. GI System: Abdomen soft, nontender. Normo active bowel sounds present. Musculoskeletal System: Left lower extremity with edema and ecchymosis around the surgical site. Bandages intact and clean and dry.. Full distal pulses. Normal capillary refill. Neurological System: No discernable sensory deficit. No aphasia Psychiatric System: Conversation is rational Results - Labs CBC & BMP: 11/05/16 04:40 11/05/16 04:40 Lab Results: I have reviewed the past 24 hour labs Quality Measures - Stroke Symptom Onset Unknown: No
[2016-11-05] MEDS: TICAGRELOR 90 MG TABLET PO SCH ×2 (11:42→22:46)
[2016-11-05] MEDS: CARVEDILOL 3.125 MG TABLET PO SCH ×2 (11:42→22:47)
[2016-11-05] MEDS: ATORVASTATIN 40 MG TABLET PO SCH (11:43)
--- NOTE | 2016-11-05 12:58 | Nephrology Progress Note ---
Nephrology - PN: Subj Interval history: She is awake and alert. She denies shortness of breath. No dysuria Exam (PN)-Nephrology - Vital Signs Vital signs: Period Temp Pulse Resp BP Sys/Alvarez Pulse Ox Last 24 Hr 97.4 F-98.4 F 73-90 16-20 136-169/67-79 96-100 Exam: ENT: Normal Cardiovascular: Regular rate and rhythm. No murmur rub or gallop Lungs: Clear Extremities: No edema - Lab 11/05/16 04:40 11/05/16 04:40 Most recent lab results Calcium 8.1 MG/DL (8.5-10.1) L 11/05/16 04:40 Assessment and Plan (1) Acute on chronic renal failure Status: Acute Assessment and plan: 81-year-old woman with: * CRF late stage III. Baseline creatinine upper twos * ARF. Resolved. Creatinine back to baseline * Anemia. Stable after transfusion * Hypotension secondary to blood loss. Resolved * UTI. Urine culture has grown yeast. Agree with Diflucan * CAD * Diabetes mellitus * Recent hip fracture . Current Visit: No (2) UTI (urinary tract infection) Status: Acute Current Visit: Yes (3) CAD (coronary artery disease) Status: Chronic Current Visit: Yes (4) Fracture, intertrochanteric, left femur Status: Acute Current Visit: No (5) Diabetes Status: Chronic Current Visit: No (6) Insulin dependent diabetes mellitus Status: Chronic Current Visit: No (7) Acute blood loss anemia Status: Resolved Current Visit: No
[2016-11-05] MEDS: FLUCONAZOLE INJ 200 MG in PREMIX 1 EACH IV SCH (17:09)
[2016-11-06] MEDS: INSULIN NPH 100 UNIT/ML SUBCUT SCH (00:23)
[2016-11-06] MEDS: INSULIN LISPRO 100 UNIT/ML SUBCUT SCH ×3 (00:23→12:27)
[2016-11-06 05:04] LABS: INR 1.1; PT Patient Result 11.2 SECS
[2016-11-06 05:23] LABS: Calcium 7.7 MG/DL (8.5-10.1); Osmolality,Calculated 288.5 MOS/KG (273-304); Potassium 4.9 MMOL/L (3.5-5.1)
[2016-11-06] MEDS: INSULIN REGULAR 100 UNIT/ML SUBCUT SCH ×2 (09:08→12:31)
--- NOTE | 2016-11-06 09:12 | Orthopedic Progress Note ---
Orthopedics - Subjective Interval history: Comfortable dressing dry ready for swing bed placement likely today. Instructed. Malika will be removed most likely this weekend advancing to full weight-bear follow-up x-ray to my office prior to discharge from swing bed as ordered. Exam - Constitutional Vitals: Period Temp Pulse Resp BP Sys/Alvarez Pulse Ox Last 24 Hr 97.0 F-98.4 F 81-97 18-20 142-165/64-86 92-98 Results - Labs CBC & BMP: 11/05/16 04:40 11/06/16 04:16 Quality Measures - Stroke Symptom Onset Unknown: No
[2016-11-06] MEDS: TICAGRELOR 90 MG TABLET PO SCH (09:22)
[2016-11-06] MEDS: ATORVASTATIN 40 MG TABLET PO SCH (09:22)
[2016-11-06] MEDS: CARVEDILOL 3.125 MG TABLET PO SCH (09:22)
[2016-11-06 11:23] LABS: Apearance,Urine Slightly Hazy (Clear); Bilirubin,Urine Negative (Negative); Blood, Urine Small mg/dL (Negative); Glucose,Urine (UA) 150 mg/dL (Negative); Ketones,Urine Negative (Negative); Nitrite,Urine Negative (Negative); Protein,Urine 100 MG/DL; RBC,Urine 6 /HPF (0-4); Urine Color Yellow (Yellow); Urine Specific Gravity 1.012 (1.001-1.035); Urine Urobilinogen < 2.0 EU/DL (0.2-1.0); WBC,Urine 112 /HPF (0-6)
--- NOTE | 2016-11-06 11:25 | Discharge Summary ---
Hospital Course - Hospital Course Hospital Course: Chief complaint: hypotension/urosepsis History of present illness: Ms. Walsh is a 81 year old white female with a history of CAD, diabetes, dyslipidemia, chronic renal disease, and a recent left hip fracture that presented to the ED from the [facility] for further evaluation of hypotension. Pt.'s family is present at the bedside. Pt. was discharged from [place] on 10/29 after a repair to a left hip fracture. She was transferred to [facility] for rehab. Pt. was noted to have a low blood pressure this morning and was transferred back to the main facility for eval. On arrival to our ED, bp was stable but patient was noted to have a UTI with an elevated WBC of 19.6. Pt. also noted to have Na of 131, K of 5.5, bun 66, creatinine of 4 and lactic acid of 3.3. Pt. reports feeling "ill" but is unable to describe her symptoms any further. She denies chest pain, chills, shortness of breath, n/v/d, or any other complaints at this time. Pt. will be admitted to the hospitalist service for further eval and treatment of urosepsis, acute on chronic renal failure, and hyperkalemia. 81-year-old white female known to me from prior admission when she was admitted for hip replacement who was sent to rehab. She was sent to the emergency department because of low blood pressure and upon evaluation she was found to have a UTI with subsequent leukocytosis and lactic acidosis. On exam she is currently afebrile vital signs as noted below. Cardiovascular regular rate and rhythm. Lungs are clear without rales rhonchi or wheeze. Abdomen soft nontender nondistended. Extremities no clubbing cyanosis or edema. Lab and radiologic data been reviewed. Assessment and plan: 1. Severe sepsis Patient has a urinary tract infection and meets 2 sirs criteria with her leukocytosis and tachypnea with respirations of 23. She also has a lactate greater than 2 and has acute on chronic kidney injury with a creatinine of approximately 4 and a baseline running between 2 and 2.5. She will be placed on sepsis protocol and cautiously hydrated over the next several hours, cultured and placed on empiric IV antibiotics, follow-up lactic acid and exam. 2. Urinary tract infection Cultured and placed on empiric IV antibiotic 3. History of cardiomyopathy with ejection fraction of 30% Continuing her home medical regimen with the exception of holding her hydralazine at present because of her earlier hypotension reported. She is no longer hypertensive but will add this back as her clinical status dictates. As noted she is being cautiously hydrated over the next several hours. 4. History of coronary artery disease No signs or symptoms suggestive of ACS at this time. Continuing her current medical regimen. 5. Diabetes mellitus insulin requiring Continuing her current home regimen with Accu-Cheks and sliding scale. 6. Acute on chronic kidney injury We are hydrating at present, avoiding any nephrotoxic agents, follow-up renal function in the a.m. 7. Hyperkalemia We are hydrating at this time and will avoid any potassium supplementation. Suspect as her acidosis resolves and her renal function improves this will normalize as well The patient was admitted to the intensive care unit where she was treated with IV fluids and IV antibiotics. During the course of her hospitalization she had acute blood loss anemia with hypotension. She required 2 units of packed red blood cell transfusion. Her acute renal failure has resolved and her chronic kidney disease persists however her creatinine is back to baseline. She was followed by Dr. Tyler during this hospitalization. She has been cleared for discharge by nephrology as well as orthopedic surgery. She has reached maximal benefit from this inpatient hospitalization is being discharged to swing bed at [facility] in accordance with her family's wishes. They felt that [facility] rehab was too aggressive for her functional capacity. The patient's home medications were reviewed and reconciled. Her home medications were continued without change. Fluconazole was added for 7 more days for treatment of yeast in the urine. The patient was seen and examined today on the day of discharge. She offers no complaints and is ready for transfer. She remains a full code. Her is her primary decision maker and healthcare surrogate. - Time spent with patient Time with patient DS: Greater than 30 minutes (Total discharge time for this patient, including [id number] time, clinical documentation, medication reconciliation, and discharge planning was 42 minutes.) Diagnosis - Discharge Diagnosis (1) Chronic kidney disease, stage III (moderate) Status: Chronic (2) Ischemic cardiomyopathy Status: Chronic (3) S/P drug eluting coronary stent placement Status: Acute (4) Acute blood loss anemia Status: Resolved (5) UTI (urinary tract infection) Status: Acute (6) Hypertension Status: Chronic (7) CAD (coronary artery disease) Status: Chronic Discharge Plan - Discharge Data Disposition: Swing Bed, Hos Based, [place] Condition at Discharge: Stable Discharge Diet: advance to your usual diet Activity: resume usual activities as tolerated, as per physical therapy Hygiene: no restrictions Weight Bearing at Discharge: full weight bearing Contact your physician if you experience:: fever over 101, Shortness of breath, Bleeding, pain uncontrolled by pain medications - Discharge Medications New Fluconazole Tab [Diflucan Tab] 100 mg PO DAILY #7 tablet Continue Atorvastatin [Lipitor] 40 mg PO DAILY #30 tablet Carvedilol [Coreg] 3.125 mg PO BID #60 tablet Isosorbide Mononitrate [Imdur] 30 mg PO DAILY #30 tablet Ticagrelor [Brilinta] 90 mg PO BID #60 tablet hydrALAZINE TAB [Apresoline Tab] 25 mg PO BID #60 tablet Insulin Regular [HumuLIN R] 5 unit SUBCUT AC Insulin NPH [HumuLIN N] 10 unit SUBCUT BEDTIME - Follow Up or Referral - Forms/Instructions Additional Discharge Instructions: Follow-up with Dr. Stone after discharge from swing bed. Have x-rays sent to Dr. Stone's office prior to discharge from swing bed. Exam - Constitutional Vitals: Period Temp Pulse Resp BP Sys/Alvarez Pulse Ox Last 24 Hr 97.0 F-98.3 F 81-97 18-20 142-165/64-86 92-98 Discharge Results Procedures and tests throughout hospitalization: Pending Orders 11/02/16 17:27 Blood Culture Stat 11/03/16 16:09 Blood Culture Stat 11/05/16 09:56 Occult Blood, Stool Routine 11/06/16 10:50 Urinalysis Labs on day of discharge: Labs from last 24 hours 11/06/16 11/06/16 11/06/16 11:19 07:00 04:16 INR PT Patient/Control Mix Sodium 139 Potassium 4.9 Chloride 110 H Carbon Dioxide 20 L Anion Gap 13.9 BUN 39 H Creatinine 2.50 H GFR Calculation 17 BUN/Creatinine Ratio 15.00 Glucose 150 H POC Glucose 229 H 149 H Calculated Osmolality 288.5 Calcium 7.7 L Magnesium 2.0 11/06/16 11/05/16 11/05/16 04:16 19:27 15:12 INR 1.1 PT Patient/Control Mix 11.2 Sodium Potassium Chloride Carbon Dioxide Anion Gap BUN Creatinine GFR Calculation BUN/Creatinine Ratio Glucose POC Glucose 214 H 173 H Calculated Osmolality Calcium Magnesium Preliminary micro results at discharge 11/02/16 17:27 Blood Culture - Preliminary Blood No growth at 3 days 11/02/16 17:27 Blood Culture - Preliminary Blood No growth at 3 days 11/03/16 16:09 Blood Culture - Preliminary Blood No growth at 1 day 11/03/16 16:09 Blood Culture - Preliminary Blood No growth at 1 day DS: Provider Date of admission: 11/02/16 17:56 Primary care physician: Franky Brown MD Attending physician on admission: Bradly Ye MD Consults: 11/03/16 09:06 Consult to Occupational Therapy [CONS] Routine Reason for Occupational Therapy: Evaluate and Treat Consult to Physical Therapy [CONS] Routine Reason for Physical Therapy: Evaluate and Treat 11/03/16 14:14 Consult to Physician [CONS] Routine Comment: Consulting Provider: Mike Stone Jr. Consulting Provider Notified: Yes Consult to Specialist Group: Orthopedic Person Notified: elisabeth Date Notified: 11/03/16 Time Notified: 14:50 11/04/16 15:11 Consult to Physician [CONS] Routine Comment: renal failure Consulting Provider: Ariel Tyler Consulting Provider Notified: Yes When should Consulting Provider be notified: Now Person Notified: margoth carrasquillo Date Notified: 11/04/16 Time Notified: 15:48 11/05/16 09:19 Consult to Case Mgmt/Social Srvs [CONS] Routine Reason for Case Mgmt/Social Srvs: Rehab Swingbed/SNF/Intermediate Consult Comment: Rehab @ Swing Bed Discharging clinician: Neli Wu MD Expected date of discharge: 11/06/16
--- NOTE | 2016-11-06 11:39 | Nephrology Progress Note ---
Nephrology - PN: Subj Interval history: No new symptoms today. She denies shortness of breath or nausea. Exam (PN)-Nephrology - Vital Signs Vital signs: Period Temp Pulse Resp BP Sys/Alvarez Pulse Ox Last 24 Hr 97.0 F-98.3 F 81-97 18-20 142-165/64-86 92-98 Exam: ENT: Normal Cardiovascular: Regular rate and rhythm. No murmur rub or gallop Lungs: Clear Extremities: No edema - Lab 11/05/16 04:40 11/06/16 04:16 Most recent lab results Calcium 7.7 MG/DL (8.5-10.1) L 11/06/16 04:16 Magnesium 2.0 MG/DL (1.8-2.4) 11/06/16 04:16 Assessment and Plan (1) Acute on chronic renal failure Status: Acute Assessment and plan: 81-year-old woman with: * CRF late stage III. Baseline creatinine upper twos * ARF. Resolved. Creatinine back to baseline * Anemia. Stable after transfusion * Hypotension secondary to blood loss. Resolved * UTI. Urine culture has grown yeast. Agree with Diflucan * CAD * Diabetes mellitus * Recent hip fracture Current Visit: No (2) UTI (urinary tract infection) Status: Acute Current Visit: Yes (3) CAD (coronary artery disease) Status: Chronic Current Visit: Yes (4) Fracture, intertrochanteric, left femur Status: Acute Current Visit: No (5) Diabetes Status: Chronic Current Visit: No (6) Insulin dependent diabetes mellitus Status: Chronic Current Visit: No (7) Acute blood loss anemia Status: Resolved Current Visit: No
[2016-11-06 12:02] VITALS: BP 93/62
== END 2016-11-06 13:50 | DRG 871 ==
LOC: N.ED 15:23 → SUATTDRO 17:56 → N.EDINP 17:56 → N.CC 19:02 → N.TELEN 19:39 → N.5E 19:42 → N.ICU 11-03 14:08 → N.3E 11-04 10:05
PROVIDERS: ADMIT Internal Medicine; ATTEND Family Medicine